=== PATIENT | male | born 2000 | race African-American/Black ===

== ENCOUNTER 2023-07-27 09:06 | Emergency (ER) | payer OTHER ==
[2023-07-27 09:38] VITALS: O2SAT 100
[2023-07-27] MEDS: ONDANSETRON ODT 4 MG TABLET TL STA (11:28)
--- NOTE | 2023-07-27 11:28 | ED Physician Documentation ---
PD HPI ABD PAIN - Stated complaint Stated Complaint: ABD PX,NAUSEA - Chief complaint Chief Complaint: Abd Pain - Additional information Additional information: 23-year-old male with no pertinent past medical history presents emergency department with midepigastric pain. Patient says that he went to urgent care this morning where they told him it could be a possible incarcerated hernia. When sitting at rest he does not have any severe abdominal pain he does have about a 1 cm mass that feels somewhat firm to his mid abdomen superior to bellybutton inferior to sternum that is painful. He has had no emesis regular bowel movements no severe pain out of proportion. PD PAST MEDICAL HISTORY - Past Medical History Past Medical History: No - Past Surgical History Past Surgical History: Yes Ortho: Arthroscopic surgery - Present Medications Home Medications: Ambulatory Orders Medication Instructions Recorded Confirmed No Known Home Medications 07/27/23 07/27/23 - Allergies Allergies/Adverse Reactions: Allergies Allergy/AdvReac Type Severity Reaction Status Date / Time No Known Drug Allergies Allergy Verified 07/27/23 09:28 - Social History Does the pt smoke?: No Smoking Status: Never smoker Does the pt drink ETOH?: Yes Does the pt have substance abuse?: No - Immunizations Immunizations are current?: Yes - POLST Patient has POLST: No PD ED PE NORMAL - Vitals Vital signs reviewed: Yes - General General: Alert and oriented X 3, No acute distress, Well developed/nourished - Respiratory Respiratory: No respiratory distress, Clear bilaterally - Abdomen Abdomen: Normal bowel sounds, Soft, Non distended, No organomegaly, Other (1cm nodule, fixed, firm, superior to bellybutton) - Derm Derm: Normal color, Warm and dry - Extremities Extremities: No deformity - Psych Psych: Normal mood Results - Vitals Vitals: Vital Signs - 24 hr 07/27/23 07/27/23 09:28 12:21 Temperature 37.1 C Heart Rate 64 78 Respiratory 16 20 Rate Blood Pressure 148/78 H 134/78 H O2 Saturation 100 100 Oxygen O2 Source Room air - Rads (name of study) abd US Relevant Findings:: Final report received, EMP independent interpretation of test, Other (cyst like appearance, 8mm) PD Medical Decision Making - ED course ED course: 23-year-old male presents emergency department for concerns of incarcerated hernia. He shows absolutely no clinical signs of incarcerated, no vomiting diarrhea no severe abdominal pain, lump to mid abdomen superior to bellybutton is not mobile and fixed. Ultrasound was complete which revealed an 8 mm cyst. He was given 4 mg of Zofran to help with his nausea which alleviated his symptoms. He was told to follow-up with primary care provider for further evaluation and plan for his cyst. All questions answered return precautions given. Departure - Departure Disposition: 01 Home, Self Care Clinical Impression: Cyst of skin Condition: Good Instructions: Cyst Epidermoid Comments: You appear to have a small 8 mm cyst appearance in the epidermis of your abdomen. There is nothing emergent that is warranted at this time. Follow-up with your primary care provider for further recommendations and guidance. Please come back to the emergency department for starting to notice any severe redness swelling drainage that is yellow/green, fevers or chills or severe abdominal pain. Forms: PCP List Discharge Date/Time: 07/27/23 12:22
[2023-07-27 12:23] VITALS: BP 134/78
--- NOTE | 2023-07-27 12:30 | Ultrasound Report ---
PROCEDURE: Abdomen Limited INDICATIONS: small lump superior to bellybutton,painful,hernia? TECHNIQUE: Real-time focused scanning was performed of the palpable lump, midline anterior abdomen, superior to umbilicus COMPARISONS: None. FINDINGS: The palpable lump corresponds to a small hypoechoic lesion in the superficial subcutaneous tissues me asuring 0.8 x 0.8 x 0.2 cm. Consider lipoma versus cyst with proteinaceous debris. IMPRESSION: Palpable lump corresponds to a small benign-appearing lesion in the superficial subcutaneous fat. Con receiving dock checker lipoma versus small cyst with proteinaceous debris. Reviewed by: Eddie Jimenez MD on 07/27/2023 12:29 PM PDT Approved by: Eddie Jimenez MD on 07/27/2023 12:29 PM PDT Station ID: [id number]
== END 2023-07-27 12:22 | disposition home or self-care (01) ==
LOC: ED 09:06
DX: N50.3 Cyst of epididymis (principal)
CPT/HCPCS: 76705; 99283; 99284; Q0162

== ENCOUNTER 2023-10-01 10:50 | Day surgery (SDC) | payer OTHER ==
[~2023-10-01 10:50] MED LIST: ceFAZolin 2 GM VIAL ONE
[2023-10-01] MEDS: LACTATED RINGERS 1,000 ML IV ONE (10:56)
[2023-10-01 11:03] VITALS: O2SAT 100
--- NOTE | 2023-10-01 11:40 | ANESTHESIA ---
Pre-Anesthesia VS, & Labs - Diagnosis painful epigastric hernia - Procedure open repair of abdominal wall hernia Vital Signs: Temp Pulse Resp BP Pulse Ox O2 Flow Rate 36.4 C L 66 12 131/75 H 100 10/01/23 10:59 10/01/23 10:59 10/01/23 10:59 10/01/23 10:59 10/01/23 10:59 Height: 5 ft 9 in Weight (kg): 63.8 kg Body Mass Index: 20.7 BMI Classification: Normal - NPO >8 hours Home Medications and Allergies No Known Home Medications 07/27/23 Allergies/Adverse Reactions: Allergies Allergy/AdvReac Type Severity Reaction Status Date / Time No Known Drug Allergies Allergy Verified 09/30/23 11:42 Anes History & Medical History - Anesthetic History Anesthesia Complications: reports: No previous complications - Medical History Cardiovascular: reports: None Pulmonary: reports: Pneumonia Gastrointestinal: reports: None Urinary: reports: None Smoking Status: Never smoker - Surgical History Orthopedic: Exam General: Alert, Oriented x3 Dental: WNL Mouth Opening: Greater than 4 Fingerbreadths Neck Mobility: Normal Mallampati classification: I Thyromental Distance: greater than 6 cm Respiratory: Lungs clear Cardiovascular: Regular rate, Normal S1, Normal S2 Plan Anesthesia Type: General Consent for Procedure(s) Verified and Reviewed: Yes Code Status: Attempt Resuscitation ASA classification: 1-Healthy patient Is this case an emergency?: No
[2023-10-01] MEDS ORDERED: ONDANSETRON 4 MG/2 ML VIAL IVP PRN ×2 (11:43→14:18)
[2023-10-01] MEDS ORDERED: ePHEDrine 50 MG/ML VIAL IVP PRN (11:43)
[2023-10-01] MEDS ORDERED: MORPHINE 2 MG/ML CARPUJECT IVP PRN (11:43)
[2023-10-01] MEDS ORDERED: ATROPINE ABBOJECT 1 MG/10 ML SYRINGE IVP PRN (11:43)
[2023-10-01] MEDS ORDERED: METOCLOPRAMIDE 10 MG/2 ML VIAL IVP PRN (11:43)
[2023-10-01] MEDS ORDERED: fentaNYL 100 MCG/2 ML VIAL IVP PRN (11:43)
[2023-10-01] MEDS ORDERED: NALOXONE 0.4 MG/ML VIAL IVP PRN (11:43)
[2023-10-01] MEDS ORDERED: HYDROmorphone 0.5 MG/0.5 ML SYRINGE IVP PRN ×2 (11:43→14:18)
[2023-10-01] MEDS ORDERED: LACTATED RINGERS 1,000 ML IV SCH (12:00)
[2023-10-01] MEDS ORDERED: MIDAZOLAM 2 MG/2 ML VIAL ONE (12:05)
[2023-10-01] MEDS ORDERED: fentaNYL 100 MCG/2 ML VIAL ONE (12:05)
[2023-10-01] MEDS ORDERED: PROPOFOL 200 MG/20 ML VIAL IVP ONE ×2 (12:05→13:20)
[2023-10-01] MEDS ORDERED: LIDOCAINE-PF 2% 10 ML AMP SUBQ ONE (12:05)
[2023-10-01] MEDS ORDERED: BUPIVACAINE 0.25% PF 30 ML VIAL ONE (12:30)
[2023-10-01] MEDS ORDERED: LIDOCAINE-MPF 1% 30 ML VIAL ONE (12:58)
--- NOTE | 2023-10-01 13:09 | HISTORY & PHYSICAL EXAMINATION ---
Chief Complaint - Chief Complaint Chief Complaint: here for hernia surgery History of Present Illness - History Obtained From Records Reviewed: yes History obtained from: pt Exam Limitations: none - History of Present Illness HPI Comment/Other: painful epigastric hernia bulge for months History - Past Medical History Cardiovascular: reports: None Respiratory: reports: Pneumonia GI: reports: None : reports: None Psych: reports: None MRSA Hx?: No - Past Surgical History Ortho: - POLST Patient has POLST: No Meds/Allgy - Home Medications Home Medications: Ambulatory Orders Medication Instructions Recorded Confirmed No Known Home Medications 07/27/23 09/30/23 - Allergies Allergies/Adverse Reactions: Allergies Allergy/AdvReac Type Severity Reaction Status Date / Time No Known Drug Allergies Allergy Verified 09/30/23 11:42 Review of Systems - Other Findings Other Findings: 10 pt ros as above otherwise unremarkable Exam - Vital Signs Vital Signs: Vital Signs x48h Temp Pulse Resp BP Pulse Ox 10/01/23 10:59 36.4 C L 66 12 131/75 H 100 - Physical Exam General Appearance: positive: No acute distress, Alert Eyes Bilateral: positive: PERRL, EOMI ENT: positive: No signs of dehydration Neck: positive: No JVD Respiratory: positive: No respiratory distress Cardiovascular: positive: Regular rate & rhythm Abdomen: positive: Non-tender, No distention, Other (5 mm epigastric hernia) Neurologic/Psychiatric: positive: Oriented x3 Conclusion/Plan - Problem List (1) Epigastric hernia Conclusion/Plan: plan open repair with mesh. parq held and consent obtained
[2023-10-01] MEDS ORDERED: ONDANSETRON 4 MG/2 ML VIAL ONE (13:24)
[2023-10-01] MEDS ORDERED: DEXAMETHASONE 4 MG/ML VIAL ONE (13:24)
[2023-10-01] MEDS ORDERED: ACETAMINOPHEN 1,000 MG/100 ML 1,000 MG/100 ML BAG IV ONE (13:33)
[2023-10-01] MEDS: BUPIVACAINE 0.25% PF 30 ML VIAL SUBQ ONE ×2 (13:36)
[2023-10-01] MEDS: LACTATED RINGERS 400 ML IV ONE ×2 (14:14→14:50)
[2023-10-01] MEDS ORDERED: HYDROcod/ACETAM 5/325 MG TABLET PO PRN (14:18)
--- NOTE | 2023-10-01 14:50 | OPERATIVE REPORT ---
Operative Report - General Procedure Date: 10/01/23 Planned Procedure: open epigastric hernia repair with mesh Pre-Op Diagnosis: epigastric hernia Procedure Performed: open epigastric hernia repair with mesh Post Op Diagnosis: 1 cm epigastric hernia - Procedure Note Primary Surgeon: carmen ward Anesthesia Technique: General LMA, Local Pathology: none Estimated Blood Loss (mL): 0 Drain/Tube Type: Other (none) Indications: painful hernia bulge Findings: 1 cm hernia with thin fascia cephalad 1.5 x 2.5 cm polypropylene preperitoneal Complications: none - Other Other Information/Narrative: The patient was prepped identified brought to the operating room and placed in supine position. Laryngeal mask anesthesia was induced. Sequential compression devices were placed. He was prepped and draped in a sterile fashion and given preoperative antibiotics a vertical incision was made directly over the palpable hernia bulge. Dissection proceeded sharply or with cutting current cautery. Subcutaneous tissue was mobilized away from the fascial defect. The fascia cephalad of the hernia was very thin. He had approximately 1 cm hernia defect. The thin 5 mm of fascia cephalad was divided. Preperitoneal space was developed. 2 and half centimeters tall by 1 and half centimeter wide polypropylene mesh was placed into the preperitoneal space and secured with 6 interrupted 0 Ethibond sutures. Fascia was closed over the mesh with 3 additional interrupted 0 Ethibond sutures. Subcutaneous tissue was reapproximated with interrupted 3-0 Vicryl. Buried interrupted subdermal 3-0 Vicryl sutures were then placed. Skin was closed with a running 4-0 Monocryl subcuticular suture. Steri-Strips and dressing were applied. Tolerated the procedure well was awakened and brought to recovery in good condition.
--- NOTE | 2023-10-01 14:52 | ANESTHESIA POST OP EVALUATION ---
Anesthesia Post Eval - Post Anesthesia Eval Vitals: Last Vital Signs Temp 36.1 C L 10/01/23 14:51 Pulse 84 10/01/23 14:51 Resp 13 10/01/23 14:51 BP 137/76 H 10/01/23 14:51 Pulse Ox 100 10/01/23 14:51 O2 Flow Rate CV Function Including HR & BP: Stable Pain Control: Satisfactory Nausea & Vomiting: Negative Mental Status: Baseline Respiratory Status: Airway Patent Hydration Status: Satisfactory Anesthesia Complications: None
[2023-10-01 15:17] VITALS: BP 135/79
== END 2023-10-01 10:51 | disposition home or self-care (01) ==
LOC: SDS 10:50
PROVIDERS: ATTEND Surgery
DX: K43.9 Ventral hernia without obstruction or gangrene (principal)
CPT/HCPCS: 49591; J0131; J7120